=== PATIENT | female | born 1950 | race Caucasian/White ===

== ENCOUNTER → 2017-04-21 | Outpatient (CLI) | payer OTHER, MEDICARE | LOC: FIMAGING 10:31 | PROVIDERS: ATTEND Nurse Practitioner Women's Health | DX: Z12.31 Encounter for screening mammogram for malignant neoplasm of breast (principal); N63 Unspecified lump in breast | CPT/HCPCS: G0202 ==

== ENCOUNTER → 2017-05-16 | Outpatient (CLI) | payer OTHER, MEDICARE | LOC: FIMAGING 15:22 | PROVIDERS: ATTEND Physician Assistant | DX: Z12.39 Encounter for other screening for malignant neoplasm of breast (principal); N63.10 Unspecified lump in the right breast, unspecified quadrant ==

== ENCOUNTER → 2017-11-02 | Outpatient (CLI) | payer OTHER, MEDICARE | LOC: FIMAGING 09:27 | PROVIDERS: ATTEND Physician Assistant | DX: N60.01 Solitary cyst of right breast (principal) ==

== ENCOUNTER → 2018-11-28 | Outpatient (CLI) | payer OTHER, MEDICARE | LOC: FIMAGING 12:10 | PROVIDERS: ATTEND Family Medicine | DX: Z12.31 Encounter for screening mammogram for malignant neoplasm of breast (principal) ==